=== PATIENT | male | born 1985 | race Two or more races ===

== ENCOUNTER 2023-11-21 17:33 | Inpatient (IN) | payer BC, OTHER ==
[2023-11-21 17:59] VITALS: BMI 29.5
[2023-11-21] MEDS ORDERED: BENZOCAINE/MENTHOL (CHLORASEPTIC ) LOZENGE MM PRN (21:55)
[2023-11-21] MEDS ORDERED: BISMUTH SUBSALICYLATE 524 MG/30 ML PO PRN (21:55)
[2023-11-21] MEDS ORDERED: ONDANSETRON *ODT* 4 MG TABLET SL PRN (21:55)
[2023-11-21] MEDS ORDERED: MAGNESIUM HYDROX 2400MG/30ML ORAL SUSPENSION 30 ML CUP PO PRN (21:55)
[2023-11-21] MEDS ORDERED: POLYETHYLENE GLYCOL (HEALTHYLAX) 3350 17 GM PACKET PO PRN (21:55)
[2023-11-21] MEDS ORDERED: guaiFENesin 600 MG TABLET.ER (FP) PO PRN (21:55)
[2023-11-21] MEDS ORDERED: MAG HYDROX/AL HYDROX/SIMETH 30 ML UNIT-DOSE CUP PO PRN (21:55)
[2023-11-21] MEDS ORDERED: DICYCLOMINE HCL 10 MG CAPSULE PO PRN (21:55)
[2023-11-21] MEDS ORDERED: IBUPROFEN 400 MG TABLET (FP) PO PRN (21:55)
[2023-11-21] MEDS ORDERED: LOPERAMIDE HCL 2 MG CAPSULE PO PRN (21:55)
[2023-11-21] MEDS ORDERED: NALOXONE HCL (KLOXXADO) 8 MG SPRAY NS PRN (21:55)
[2023-11-21] MEDS ORDERED: NALOXONE HCL 0.4 MG/ML VIAL IM PRN (21:55)
[2023-11-21] MEDS ORDERED: BENZONATATE 200 MG CAPSULE PO PRN (21:55)
[2023-11-21] MEDS ORDERED: chlordiazePOXIDE HCL 25 MG CAPSULE ONE (22:24)
[2023-11-21] MEDS ORDERED: MELATONIN 5 MG TABLETS ONE (22:24)
[2023-11-21] MEDS: MELATONIN 5 MG TABLETS PO SCH (22:27)
[2023-11-21] MEDS: THIAMINE HCL 100 MG TABLET (FP) PO SCH (22:27)
[2023-11-21] MEDS: chlordiazePOXIDE HCL 25 MG CAPSULE PO SCH (22:29)
[2023-11-22] MEDS: IBUPROFEN 600 MG TABLET (FP) PO PRN (00:39)
[2023-11-22] MEDS: METHOCARBAMOL 500 MG TABLET PO PRN (00:39)
[2023-11-22] MEDS: hydrOXYzine PAMOATE 25 MG CAPSULE (FP) PO PRN (00:39)
[2023-11-22] MEDS: chlordiazePOXIDE HCL 25 MG CAPSULE PO PRN (02:04)
[2023-11-22] MEDS: PRENATAL VITAMINS W/ FOLIC ACID TABLET (FP) PO SCH (10:21)
[2023-11-22] MEDS: NICOTINE 14 MG/24 HOURS TOPICAL PATCH TD SCH (10:21)
[2023-11-22 11:55] LABS: HEMATOCRIT 38.8 % (35.4-49); HEMOGLOBIN 13.4 GM/dL (11.7-16.9); MCH 30.9 pg (25.7-33.7); MCHC 34.5 g/dl (32.0-35.9); MEAN CELL VOLUME 89.6 fl (80-96); MEAN PLT VOLUME 8.9 fl (7.5-11.1); PLATELET COUNT 152 10^3/uL (134-434); RBC 4.33 M/mm3 (4.00-5.60); RDW 14.6 % (11.9-15.9); WHITE BLOOD COUNT 5.2 K/mm3 (4.0-10.0)
[2023-11-22 12:44] LABS: CHLORIDE 101 mmol/L (98-107); POTASSIUM 3.7 mmol/L (3.5-5.1); SODIUM 138 mmol/L (136-145)
[2023-11-22 12:51] LABS: CALCIUM 9.3 mg/dL (8.5-10.1)
[2023-11-22 12:52] LABS: ALBUMIN 3.5 g/dl (3.4-5.0); ANION GAP 6 mmol/L (4-13); BLOOD UREA NITROGEN 7.8 mg/dL (7-18); CO2 31 mmol/L (21-32); GLUCOSE,RANDOM 98 mg/dL (74-106)
[2023-11-22 12:55] LABS: SGOT/AST 95 U/L (15-37); SGPT/ALT 58 U/L (13-61)
[2023-11-22 12:57] LABS: ALK PHOS 104 U/L (45-117); TOT PROT 6.8 g/dl (6.4-8.2)
[2023-11-22] MEDS: NICOTINE POLACRILEX 2 MG GUM BUC PRN (15:04)
[2023-11-23] MEDS: ACETAMINOPHEN 325 MG TABLET (FP) PO PRN (01:11)
[2023-11-23] MEDS: chlordiazePOXIDE HCL 25 MG CAPSULE PO SCH (05:40)
[2023-11-23] MEDS ORDERED: BENZOCAINE 20 % GEL TUBE MM PRN (10:23)
[2023-11-24] MEDS ORDERED: chlordiazePOXIDE HCL 10 MG CAPSULE PO PRN
[2023-11-24] MEDS: chlordiazePOXIDE HCL 10 MG CAPSULE PO SCH (05:39)
[2023-11-25] MEDS: chlordiazePOXIDE HCL 10 MG CAPSULE PO SCH (05:36)
[2023-11-25 09:09] VITALS: RESP 18
[2023-11-25] MEDS: NALTREXONE HCL 50 MG TABLET PO ONE ×2 (11:41→13:46)
[2023-11-25 12:56] VITALS: BP 135/83; PULSE 69; TEMP 98
[2023-11-26] MEDS ORDERED: chlordiazePOXIDE HCL 10 MG CAPSULE PO ONE (05:00)
[2023-11-26] MEDS ORDERED: NALTREXONE HCL 50 MG TABLET PO SCH (10:00)
== END 2023-11-25 13:48 | disposition home or self-care (01) | DRG 775 ==
LOC: YASAS 17:33 → Y3N 22:18
PROVIDERS: ADMIT Allergy & Immunology; ATTEND Surgery
PROC: HZ2ZZZZ Detoxification Services for Substance Abuse Treatment (ICD-10-PCS; principal; 2023-11-21)
DX: F10.230 Alcohol dependence with withdrawal, uncomplicated (principal); F17.210 Nicotine dependence, cigarettes, uncomplicated; D57.3 Sickle-cell trait; K08.89 Other specified disorders of teeth and supporting structures; R74.01 Elevation of levels of liver transaminase levels; Z28.310 Unvaccinated for COVID-19; Z28.9 Immunization not carried out for unspecified reason
CPT/HCPCS: 36415; 80053; 80305; 80307; 85027; 86780; 87635; 87811; 93005; 93010

== ENCOUNTER 2024-03-20 16:53 | Inpatient (IN) | payer BC ==
[2024-03-20 18:22] VITALS: BMI 28.2
[2024-03-20] MEDS ORDERED: chlordiazePOXIDE HCL 25 MG CAPSULE PO PRN (18:41)
[2024-03-20] MEDS ORDERED: BENZOCAINE/MENTHOL (CHLORASEPTIC ) LOZENGE MM PRN (18:41)
[2024-03-20] MEDS ORDERED: LOPERAMIDE HCL 2 MG CAPSULE PO PRN (18:41)
[2024-03-20] MEDS ORDERED: NICOTINE POLACRILEX 2 MG LOZENGE BC PRN (18:41)
[2024-03-20] MEDS ORDERED: POLYETHYLENE GLYCOL (HEALTHYLAX) 3350 17 GM PACKET PO PRN (18:41)
[2024-03-20] MEDS ORDERED: guaiFENesin 600 MG TABLET.ER (FP) PO PRN (18:41)
[2024-03-20] MEDS ORDERED: ACETAMINOPHEN 325 MG TABLET (FP) PO PRN (18:41)
[2024-03-20] MEDS ORDERED: BENZONATATE 200 MG CAPSULE PO PRN (18:41)
[2024-03-20] MEDS ORDERED: ONDANSETRON *ODT* 4 MG TABLET SL PRN (18:41)
[2024-03-20] MEDS ORDERED: MAG HYDROX/AL HYDROX/SIMETH 30 ML UNIT-DOSE CUP PO PRN (18:41)
[2024-03-20] MEDS ORDERED: MAGNESIUM HYDROX 2400MG/30ML ORAL SUSPENSION 30 ML CUP PO PRN (18:41)
[2024-03-20] MEDS ORDERED: IBUPROFEN 400 MG TABLET (FP) PO PRN (18:41)
[2024-03-20] MEDS ORDERED: NICOTINE POLACRILEX 2 MG GUM BUC PRN (18:41)
[2024-03-20] MEDS ORDERED: BISMUTH SUBSALICYLATE 524 MG/30 ML PO PRN (18:41)
[2024-03-20] MEDS ORDERED: chlordiazePOXIDE HCL 25 MG CAPSULE ONE (19:01)
[2024-03-20] MEDS: chlordiazePOXIDE HCL 25 MG CAPSULE PO ONE (19:13)
[2024-03-20] MEDS: hydrOXYzine PAMOATE 25 MG CAPSULE (FP) PO PRN (21:05)
[2024-03-20] MEDS: MELATONIN 5 MG TABLETS PO SCH (22:16)
[2024-03-20] MEDS: THIAMINE 100 MG TABLET PO SCH (22:16)
[2024-03-20] MEDS: chlordiazePOXIDE HCL 25 MG CAPSULE PO SCH (22:18)
[2024-03-21] MEDS: DICYCLOMINE HCL 10 MG CAPSULE PO PRN (01:24)
[2024-03-21] MEDS: NALTREXONE HCL 50 MG TABLET PO SCH (10:33)
[2024-03-21] MEDS: PRENATAL VITAMINS W/ FOLIC ACID TABLET (FP) PO SCH (10:33)
[2024-03-21 11:20] LABS: HEMOGLOBIN 13.9 GM/dL (11.7-16.9); MCHC 33.9 g/dl (32.0-35.9); MEAN CELL VOLUME 88.6 fl (80-96); MEAN PLT VOLUME 8.7 fl (7.5-11.1); PLATELET COUNT 128 10^3/uL (134-434); RBC 4.63 M/mm3 (4.00-5.60); RDW 14.3 % (11.9-15.9)
[2024-03-21 11:25] LABS: POTASSIUM 3.8 mmol/L (3.5-5.1)
[2024-03-21 11:46] LABS: ALBUMIN 3.6 g/dl (3.4-5.0)
[2024-03-21 11:48] LABS: BLOOD UREA NITROGEN 9.4 mg/dL (7-18); CALCIUM 9.4 mg/dL (8.5-10.1)
[2024-03-21 11:49] LABS: BILIRUBIN,TOTAL 1.3 mg/dL (0.2-1)
[2024-03-21] MEDS: METHOCARBAMOL 500 MG TABLET PO PRN (22:08)
[2024-03-22] MEDS: chlordiazePOXIDE HCL 25 MG CAPSULE PO SCH (05:59)
[2024-03-23] MEDS ORDERED: chlordiazePOXIDE HCL 10 MG CAPSULE PO PRN
[2024-03-23] MEDS: chlordiazePOXIDE HCL 10 MG CAPSULE PO SCH (06:07)
[2024-03-24] MEDS: chlordiazePOXIDE HCL 10 MG CAPSULE PO SCH (05:54)
[2024-03-24] MEDS: IBUPROFEN 600 MG TABLET (FP) PO PRN (05:57)
[2024-03-25] MEDS: chlordiazePOXIDE HCL 10 MG CAPSULE PO ONE (06:52)
[2024-03-25 07:05] VITALS: PULSE 60; RESP 18; TEMP 97.1
[2024-03-25 08:58] VITALS: BP 132/91
== END 2024-03-25 10:43 | disposition home or self-care (01) | DRG 897 ==
LOC: YASAS 16:53 → Y6N 19:07
PROVIDERS: ADMIT Allergy & Immunology; ATTEND Surgery
PROC: HZ2ZZZZ Detoxification Services for Substance Abuse Treatment (ICD-10-PCS; principal; 2024-03-20)
DX: F10.230 Alcohol dependence with withdrawal, uncomplicated (principal); F17.210 Nicotine dependence, cigarettes, uncomplicated; F10.280 Alcohol dependence with alcohol-induced anxiety disorder; F10.282 Alcohol dependence with alcohol-induced sleep disorder; F41.8 Other specified anxiety disorders
CPT/HCPCS: 36415; 80053; 80305; 80307; 85027; 86780

== ENCOUNTER 2024-05-16 13:51 | Inpatient (IN) | payer BC ==
[2024-05-16 14:34] VITALS: BMI 28.8
[2024-05-16] MEDS ORDERED: DICYCLOMINE HCL 10 MG CAPSULE PO PRN (14:40)
[2024-05-16] MEDS ORDERED: ONDANSETRON *ODT* 4 MG TABLET SL PRN (14:40)
[2024-05-16] MEDS ORDERED: BENZOCAINE/MENTHOL (CHLORASEPTIC ) LOZENGE MM PRN (14:40)
[2024-05-16] MEDS ORDERED: MAG HYDROX/AL HYDROX/SIMETH 30 ML UNIT-DOSE CUP PO PRN (14:40)
[2024-05-16] MEDS ORDERED: BISMUTH SUBSALICYLATE 262 MG/15 ML BTL PO PRN (14:40)
[2024-05-16] MEDS ORDERED: NALOXONE HCL 0.4 MG/ML VIAL IM PRN (14:40)
[2024-05-16] MEDS ORDERED: NALOXONE (NARCAN) HCL 4 MG/0.1 ML SPRAY NS PRN (14:40)
[2024-05-16] MEDS ORDERED: ACETAMINOPHEN 325 MG TABLET (FP) PO PRN (14:40)
[2024-05-16] MEDS ORDERED: POLYETHYLENE GLYCOL (HEALTHYLAX) 3350 17 GM PACKET PO PRN (14:40)
[2024-05-16] MEDS ORDERED: guaiFENesin 600 MG TABLET.ER (FP) PO PRN (14:40)
[2024-05-16] MEDS ORDERED: MAGNESIUM HYDROX 2400MG/30ML ORAL SUSPENSION 30 ML CUP PO PRN (14:40)
[2024-05-16] MEDS ORDERED: IBUPROFEN 400 MG TABLET (FP) PO PRN (14:40)
[2024-05-16] MEDS ORDERED: BENZONATATE 200 MG CAPSULE PO PRN (14:40)
[2024-05-16] MEDS ORDERED: LOPERAMIDE HCL 2 MG CAPSULE PO PRN (14:40)
[2024-05-16] MEDS ORDERED: PRENATAL VITAMINS W/ FOLIC ACID TABLET (FP) PO ONE (15:08)
[2024-05-16] MEDS ORDERED: chlordiazePOXIDE HCL 25 MG CAPSULE ONE (15:08)
[2024-05-16] MEDS: chlordiazePOXIDE HCL 25 MG CAPSULE PO ONE (15:13)
[2024-05-16] MEDS: PRENATAL VITAMINS W/ FOLIC ACID TABLET (FP) PO SCH (15:13)
[2024-05-16] MEDS ORDERED: IBUPROFEN 600 MG TABLET (FP) PO ONE (17:18)
[2024-05-16] MEDS: IBUPROFEN 600 MG TABLET (FP) PO PRN (17:20)
[2024-05-16] MEDS: chlordiazePOXIDE HCL 25 MG CAPSULE PO PRN (18:55)
[2024-05-16] MEDS: MELATONIN 5 MG TABLETS PO SCH (22:01)
[2024-05-16] MEDS: THIAMINE 100 MG TABLET PO SCH (22:01)
[2024-05-16] MEDS: METHOCARBAMOL 500 MG TABLET PO PRN (22:02)
[2024-05-16] MEDS: chlordiazePOXIDE HCL 25 MG CAPSULE PO SCH (22:02)
[2024-05-16] MEDS: hydrOXYzine PAMOATE 25 MG CAPSULE (FP) PO PRN (22:02)
[2024-05-17] MEDS: NALTREXONE HCL 50 MG TABLET PO SCH (10:09)
[2024-05-17 12:47] LABS: HEMATOCRIT 40.1 % (35.4-49); HEMOGLOBIN 13.6 GM/dL (11.7-16.9); MCH 29.5 pg (25.7-33.7); MCHC 33.9 g/dl (32.0-35.9); MEAN CELL VOLUME 86.8 fl (80-96); MEAN PLT VOLUME 7.6 fl (7.5-11.1); PLATELET COUNT 221 10^3/uL (134-434); RBC 4.62 M/mm3 (4.00-5.60); RDW 14.2 % (11.9-15.9); WHITE BLOOD COUNT 5.6 K/mm3 (4.0-10.0)
[2024-05-17 12:57] LABS: CHLORIDE 100 mmol/L (98-107); POTASSIUM 3.9 mmol/L (3.5-5.1); SODIUM 138 mmol/L (136-145)
[2024-05-17 13:00] LABS: BLOOD UREA NITROGEN 8.6 mg/dL (7-18)
[2024-05-17] MEDS ORDERED: NALTREXONE HCL 50 MG TABLET PO SCH (13:00)
[2024-05-17 13:01] LABS: ALBUMIN 3.5 g/dl (3.4-5.0); ANION GAP 10 mmol/L (4-13); CALCIUM 9.2 mg/dL (8.5-10.1); CO2 28 mmol/L (21-32); GLUCOSE,RANDOM 101 mg/dL (74-106)
[2024-05-17 13:04] LABS: SGOT/AST 27 U/L (15-37); SGPT/ALT 25 U/L (13-61)
[2024-05-17 13:05] LABS: ALK PHOS 83 U/L (45-117)
[2024-05-17 13:06] LABS: BILIRUBIN,TOTAL 1.6 mg/dL (0.2-1); TOT PROT 6.8 g/dl (6.4-8.2)
[2024-05-17] MEDS: GABAPENTIN 100 MG CAPSULE PO SCH (15:37)
[2024-05-17] MEDS: traZODone HCL 50 MG TABLET (FP) PO SCH (22:17)
[2024-05-18] MEDS: chlordiazePOXIDE HCL 25 MG CAPSULE PO SCH (05:17)
[2024-05-18] MEDS: GABAPENTIN 300 MG CAPSULE PO SCH (22:20)
[2024-05-18] MEDS: traZODone HCL 100 MG TABLET (FP) PO SCH (22:21)
[2024-05-19] MEDS: chlordiazePOXIDE HCL 10 MG CAPSULE PO SCH (05:37)
[2024-05-19] MEDS: chlordiazePOXIDE HCL 10 MG CAPSULE PO PRN (18:50)
[2024-05-19] MEDS: hydrOXYzine PAMOATE 50 MG CAPSULE (FP) PO PRN (23:52)
[2024-05-20] MEDS: chlordiazePOXIDE HCL 10 MG CAPSULE PO SCH (06:00)
[2024-05-21] MEDS: chlordiazePOXIDE HCL 10 MG CAPSULE PO ONE (05:58)
[2024-05-21 09:36] VITALS: BP 105/61; PULSE 63; RESP 20; TEMP 97.8
== END 2024-05-21 12:46 | disposition home or self-care (01) | DRG 897 ==
LOC: YASAS 13:51 → Y3N 17:27
PROVIDERS: ADMIT Allergy & Immunology; ATTEND Surgery
PROC: HZ2ZZZZ Detoxification Services for Substance Abuse Treatment (ICD-10-PCS; principal; 2024-05-16)
DX: F10.230 Alcohol dependence with withdrawal, uncomplicated (principal); F12.20 Cannabis dependence, uncomplicated; F17.210 Nicotine dependence, cigarettes, uncomplicated; F19.24 Other psychoactive substance dependence with psychoactive substance-induced mood disorder; D57.3 Sickle-cell trait; G47.00 Insomnia, unspecified
CPT/HCPCS: 36415; 80053; 80305; 80307; 85027; 86780; 93005; 93010